=== PATIENT | male | born 1975 | race Caucasian/White ===

== ENCOUNTER 2017-01-17 12:55 | Emergency (ER) | payer MEDICAID ==
[~2017-01-17] VITALS: Ht 175.3 cm; Wt 68.8 kg
[2017-01-17] MEDS ORDERED: ASPIRIN 81 MG TABLET CHEW PO ONE (14:30)
[2017-01-17 14:41] LABS: HEMATOCRIT 43.8 % (39.2-51.8); WHITE BLOOD COUNT 8.1 x10^3/uL (3.4-10)
[2017-01-17 14:51] LABS: ASPARTATE AMINO TRANSFERASE 57 U/L (15-37); BLOOD UREA NITROGEN 14 mg/dL (7-18)
[2017-01-17] MEDS ORDERED: KETOROLAC 30 MG/1 ML IVPush ONE (15:00)
[2017-01-17 15:01] LABS: IS PT STATUS REG ER OR PRE ER? YES
[2017-01-17 15:50] VITALS: BP 119/88
== END 2017-01-17 15:57 | disposition home or self-care (01) ==
LOC: ED 15:33
DX: I30.9 Acute pericarditis, unspecified (principal)
CPT/HCPCS: 36415; 71020; 80053; 84484; 85025; 93005; 96374; 99285; J1885